=== PATIENT | female | born 1990 | race Two or more races ===

== ENCOUNTER 2025-04-13 16:05 | Emergency (ER) | payer OTHER ==
[~2025-04-13] VITALS: Ht 167.6 cm; Wt 70.0 kg
[2025-04-13 16:12] VITALS: TEMP 98.7
[2025-04-13 16:58] VITALS: BP 127/79; PULSE 74; RESP 18; O2SAT 97
[2025-04-13] MEDS: ACETAMINOPHEN 500 MG TABLET PO ONE (18:30)
[2025-04-13] MEDS: IBUPROFEN 400 MG TABLET PO ONE (18:30)
== END 2025-04-13 19:35 | disposition home or self-care (01) ==
LOC: EMS 16:05
DX: M25.572 Pain in left ankle and joints of left foot (principal); M06.9 Rheumatoid arthritis, unspecified
CPT/HCPCS: 99283